=== PATIENT | female | born 1955 | race Caucasian/White ===

== ENCOUNTER 2018-02-03 15:03 | Emergency (ER) | payer MEDICAID ==
[~2018-02-03] VITALS: Ht 175.3 cm; Wt 54.5 kg
[2018-02-03 15:15] VITALS: Ht 175.3 cm; Wt 54.5 kg
[2018-02-03 16:04] LABS: APPEARANCE CLEAR (CLEAR); BILIRUBIN NEGATIVE (NEGATIVE); COLOR YELLOW (YELLOW); GLUCOSE NEGATIVE (NEGATIVE); KETONE SMALL mg/dL (NEGATIVE); NITRITE NEGATIVE (NEGATIVE); PROTEIN TRACE mg/dL (NEGATIVE); UROBILINOGEN NORMAL (NORMAL)
[2018-02-03 16:28] LABS: BASOPHILS 0.5 % (0-2); EOSINOPHILS 0.3 % (0-7); HEMATOCRIT 45.3 % (36.0-48.0); HEMOGLOBIN 15.8 g/dL (12-16); IMMATURE GRANULOCYTES 0.3 % (0-5); LYMPHOCYTES 8.3 % (15-50); MCH 30.7 pg (26.0-34.0); MCHC 34.9 g/dL (31.0-37.0); MCV 88.1 fL (80.0-100.0); MEAN PLATELET VOLUME 10.4 fL (7.4-10.4); MONOCYTES 5.6 % (2-11); RBC 5.14 10x6/uL (4.00-5.40); RDW 12.4 % (11.5-14.5); WBC 11.5 10x3/uL (4.8-10.8)
[2018-02-03 16:30] LABS: PLATELET COUNT 150 10x3/uL (130-400)
[2018-02-03 16:55] LABS: ALKALINE PHOSPHATASE 71 U/L (46-116); ALT (SGPT) 20 U/L (10-68); AMYLASE - SERUM 43 U/L (25-115); CALC OSMOLALITY 270 mosm/kg (275-300); CALCIUM 9.1 mg/dL (8.5-10.1); CARBON DIOXIDE 27.6 mmol/L (21.0-32.0); CHLORIDE - SERUM 99 mmol/L (98-107); CREATININE - SERUM 0.8 mg/dL (0.6-1.3); GLUCOSE 114 mg/dL (74-106); LIPASE 76 U/L (73-393); POTASSIUM - SERUM 4.7 mmol/L (3.5-5.1); PROTEIN - SERUM 6.8 g/dL (6.4-8.2); SODIUM 135 mmol/L (136-145); UREA NITROGEN 13 mg/dL (7-18); eGFR NON AFRICAN AMERICAN 77 mL/min (90-120)
[2018-02-03] MEDS ORDERED: ZOFRAN ODT4 MG/UDTAB PO (21:06)
[2018-02-03] MEDS ORDERED: BENTYL 20 MG TA20 MG PO (21:06)
[2018-02-03 21:53] VITALS: BP 155/78
== END 2018-02-03 21:47 | disposition home or self-care (01) ==
LOC: D.ER 15:03
PROVIDERS: Family Medicine
DX: T50.905A Adverse effect of unspecified drugs, medicaments and biological substances, initial encounter (principal); Y92.019 Unspecified place in single-family (private) house as the place of occurrence of the external cause; R11.0 Nausea; J44.9 Chronic obstructive pulmonary disease, unspecified; F17.200 Nicotine dependence, unspecified, uncomplicated

== ENCOUNTER 2018-08-20 11:33 | Inpatient (IN) | payer MEDICAID ==
[~2018-08-20] VITALS: Ht 175.3 cm; Wt 59.1 kg
[~2018-08-20 11:33] MED LIST: BENTYL 20 MG TA20 MG PO; ZOFRAN ODT4 MG/UDTAB PO
[2018-08-20 13:05] VITALS: BP 150/83
[2018-08-20 13:10] LABS: BASOPHILS 0.3 % (0-2); EOSINOPHILS 0.1 % (0-7); HEMATOCRIT 41.2 % (36.0-48.0); HEMOGLOBIN 14.3 g/dL (12-16); IMMATURE GRANULOCYTES 0.7 % (0-5); MCH 30.6 pg (26.0-34.0); MCHC 34.7 g/dL (31.0-37.0); MCV 88.2 fL (80.0-100.0); MEAN PLATELET VOLUME 10.1 fL (7.4-10.4); MONOCYTES 15.9 % (2-11); RBC 4.67 10x6/uL (4.00-5.40); RDW 12.7 % (11.5-14.5); WBC 16.2 10x3/uL (4.8-10.8)
[2018-08-20 13:12] LABS: PLATELET COUNT 274 10x3/uL (130-400)
[2018-08-20 13:51] LABS: ALBUMIN 3.4 g/dL (3.4-5.0); ALKALINE PHOSPHATASE 163 U/L (46-116); ALT (SGPT) 31 U/L (10-68); BILIRUBIN - TOTAL 0.36 mg/dL (0.2-1.3); CALC OSMOLALITY 266 mosm/kg (275-300); CALCIUM 9.6 mg/dL (8.5-10.1); CARBON DIOXIDE 27.5 mmol/L (21.0-32.0); CHLORIDE - SERUM 95 mmol/L (98-107); CREATININE - SERUM 0.7 mg/dL (0.6-1.3); GLUCOSE 131 mg/dL (74-106); PROTEIN - SERUM 8.1 g/dL (6.4-8.2); SODIUM 133 mmol/L (136-145); UREA NITROGEN 9 mg/dL (7-18); eGFR NON AFRICAN AMERICAN 89 mL/min (90-120)
[2018-08-20 13:52] LABS: TROPONIN-I < 0.017 ng/mL (0.000-0.060)
[2018-08-20 14:19] LABS: PRO BNP 589 pg/mL (0-125)
[2018-08-20 16:41] VITALS: BP 120/69; BMI 18.2
[2018-08-20 19:00] VITALS: BP 118/69
[2018-08-21] VITALS (7 sets, daily range): BP systolic 117–131; BP diastolic 58–86; Ht 175.3 cm; Wt 59.1 kg
[2018-08-21 10:55] LABS: BASOPHILS 0.2 % (0-2); EOSINOPHILS 0 % (0-7); HEMATOCRIT 38.2 % (36.0-48.0); HEMOGLOBIN 13.1 g/dL (12-16); IMMATURE GRANULOCYTES 1.1 % (0-5); LYMPHOCYTES 8.2 % (15-50); MCH 30.3 pg (26.0-34.0); MCHC 34.3 g/dL (31.0-37.0); MCV 88.4 fL (80.0-100.0); MEAN PLATELET VOLUME 10.1 fL (7.4-10.4); MONOCYTES 6.7 % (2-11); NEUTROPHILS 83.8 % (40-80); PLATELET COUNT 300 10x3/uL (130-400); RBC 4.32 10x6/uL (4.00-5.40); RDW 12.8 % (11.5-14.5); WBC 12.2 10x3/uL (4.8-10.8)
[2018-08-21 11:04] LABS: CALCIUM 9.1 mg/dL (8.5-10.1); CHLORIDE - SERUM 96 mmol/L (98-107); CREATININE - SERUM 0.7 mg/dL (0.6-1.3); POTASSIUM - SERUM 3.9 mmol/L (3.5-5.1); SODIUM 133 mmol/L (136-145); eGFR NON AFRICAN AMERICAN 89 mL/min (90-120)
[2018-08-21 11:08] LABS: CALC OSMOLALITY 277 mosm/kg (275-300); GLUCOSE 252 mg/dL (74-106); UREA NITROGEN 21 mg/dL (7-18)
[2018-08-21 11:20] LABS: ALKALINE PHOSPHATASE 152 U/L (46-116); ALT (SGPT) 36 U/L (10-68); BILIRUBIN - TOTAL 0.22 mg/dL (0.2-1.3); CARBON DIOXIDE 27.4 mmol/L (21.0-32.0); PROTEIN - SERUM 7.2 g/dL (6.4-8.2)
[2018-08-22] VITALS: BP 130/68
[2018-08-22 04:00] VITALS: BP 134/71
[2018-08-22 04:23] LABS: BASOPHILS 0.3 % (0-2); EOSINOPHILS 0 % (0-7); HEMATOCRIT 36.7 % (36.0-48.0); HEMOGLOBIN 12.2 g/dL (12-16); IMMATURE GRANULOCYTES 2.6 % (0-5); LYMPHOCYTES 7.7 % (15-50); MCH 29.9 pg (26.0-34.0); MCHC 33.2 g/dL (31.0-37.0); MEAN PLATELET VOLUME 10.7 fL (7.4-10.4); MONOCYTES 7.9 % (2-11); NEUTROPHILS 81.5 % (40-80); PLATELET COUNT 282 10x3/uL (130-400); RBC 4.08 10x6/uL (4.00-5.40); RDW 13.2 % (11.5-14.5)
[2018-08-22 04:29] LABS: WBC 16.4 10x3/uL (4.8-10.8)
[2018-08-22 04:39] LABS: ALBUMIN 2.8 g/dL (3.4-5.0); ALKALINE PHOSPHATASE 133 U/L (46-116); ALT (SGPT) 40 U/L (10-68); BILIRUBIN - TOTAL 0.19 mg/dL (0.2-1.3); CALC OSMOLALITY 269 mosm/kg (275-300); CALCIUM 8.7 mg/dL (8.5-10.1); CARBON DIOXIDE 27.8 mmol/L (21.0-32.0); CHLORIDE - SERUM 98 mmol/L (98-107); CREATININE - SERUM 0.7 mg/dL (0.6-1.3); GLUCOSE 152 mg/dL (74-106); POTASSIUM - SERUM 4.7 mmol/L (3.5-5.1); PROTEIN - SERUM 6.5 g/dL (6.4-8.2); SODIUM 132 mmol/L (136-145); UREA NITROGEN 18 mg/dL (7-18); eGFR NON AFRICAN AMERICAN 89 mL/min (90-120)
[2018-08-22 07:00] VITALS: BP 136/68
[2018-08-22 08:28] LABS: MAGNESIUM - SERUM 2.3 mg/dL (1.8-2.4); PHOSPHOROUS 3.6 mg/dL (2.5-4.9)
[2018-08-22] MEDS ORDERED: ALBUTEROL SULF8.5 GM INH (13:52)
[2018-08-22 13:57] VITALS: BP 130/70
[2018-08-22 14:39] LABS: APPEARANCE CLEAR (CLEAR); BILIRUBIN NEGATIVE (NEGATIVE); COLOR YELLOW (YELLOW); GLUCOSE NEGATIVE (NEGATIVE); KETONE NEGATIVE (NEGATIVE); NITRITE NEGATIVE (NEGATIVE); PROTEIN TRACE mg/dL (NEGATIVE); SPECIFIC GRAVITY 1.015 (1.005-1.020); UROBILINOGEN NORMAL (NORMAL)
[2018-08-22 14:40] LABS: AMORPHOUS SEDIMENT <1+ /lpf (NONE SEEN); BACTERIA MODERATE /hpf (NONE SEEN); EPITHELIAL CELLS 0-5 /hpf (0-5); MUCUS <1+ /lpf (NONE SEEN); RED CELLS - URINE OCC /hpf (0-5); WHITE CELLS - URINE OCC /hpf (0-5)
[2018-08-22 16:11] VITALS: BP 155/76
[2018-08-22 20:00] VITALS: BP 140/60
[2018-08-23 04:00] VITALS: BP 142/66
[2018-08-23 05:39] LABS: BASOPHILS 0.5 % (0-2); EOSINOPHILS 0 % (0-7); HEMATOCRIT 35.8 % (36.0-48.0); HEMOGLOBIN 11.6 g/dL (12-16); LYMPHOCYTES 8.7 % (15-50); MCH 29.7 pg (26.0-34.0); MCHC 32.4 g/dL (31.0-37.0); MCV 91.6 fL (80.0-100.0); MEAN PLATELET VOLUME 10.2 fL (7.4-10.4); MONOCYTES 8.4 % (2-11); NEUTROPHILS 74.4 % (40-80); PLATELET COUNT 309 10x3/uL (130-400); RBC 3.91 10x6/uL (4.00-5.40); RDW 13.2 % (11.5-14.5); WBC 16.4 10x3/uL (4.8-10.8)
[2018-08-23 05:50] LABS: ALBUMIN 2.7 g/dL (3.4-5.0); ALKALINE PHOSPHATASE 120 U/L (46-116); ALT (SGPT) 49 U/L (10-68); BILIRUBIN - TOTAL 0.25 mg/dL (0.2-1.3); CALC OSMOLALITY 271 mosm/kg (275-300); CALCIUM 8.6 mg/dL (8.5-10.1); CARBON DIOXIDE 29.6 mmol/L (21.0-32.0); CHLORIDE - SERUM 100 mmol/L (98-107); CREATININE - SERUM 0.7 mg/dL (0.6-1.3); GLUCOSE 127 mg/dL (74-106); MAGNESIUM - SERUM 2.4 mg/dL (1.8-2.4); PHOSPHOROUS 3.4 mg/dL (2.5-4.9); POTASSIUM - SERUM 4.8 mmol/L (3.5-5.1); SODIUM 134 mmol/L (136-145); UREA NITROGEN 17 mg/dL (7-18); eGFR NON AFRICAN AMERICAN 89 mL/min (90-120)
[2018-08-23 10:19] VITALS: BP 160/73
[2018-08-23 17:31] VITALS: BP 150/68
[2018-08-23 21:10] VITALS: BP 141/74
[2018-08-24] VITALS (7 sets, daily range): BP systolic 125–164; BP diastolic 71–85
[2018-08-24 05:24] LABS: BASOPHILS 0.7 % (0-2); EOSINOPHILS 0 % (0-7); HEMATOCRIT 39.6 % (36.0-48.0); HEMOGLOBIN 13.2 g/dL (12-16); IMMATURE GRANULOCYTES 10.4 % (0-5); MCH 30.6 pg (26.0-34.0); MCHC 33.3 g/dL (31.0-37.0); MCV 91.7 fL (80.0-100.0); NEUTROPHILS 71.9 % (40-80); PLATELET COUNT 322 10x3/uL (130-400); RBC 4.32 10x6/uL (4.00-5.40); RDW 13.2 % (11.5-14.5); WBC 17.2 10x3/uL (4.8-10.8)
[2018-08-24 05:48] LABS: ALBUMIN 2.9 g/dL (3.4-5.0); ALKALINE PHOSPHATASE 115 U/L (46-116); ALT (SGPT) 55 U/L (10-68); BILIRUBIN - TOTAL 0.27 mg/dL (0.2-1.3); CALC OSMOLALITY 275 mosm/kg (275-300); CALCIUM 8.7 mg/dL (8.5-10.1); CHLORIDE - SERUM 100 mmol/L (98-107); CREATININE - SERUM 0.7 mg/dL (0.6-1.3); GLUCOSE 123 mg/dL (74-106); MAGNESIUM - SERUM 2.4 mg/dL (1.8-2.4); PHOSPHOROUS 3.6 mg/dL (2.5-4.9); POTASSIUM - SERUM 5.4 mmol/L (3.5-5.1); PROTEIN - SERUM 6.3 g/dL (6.4-8.2); SODIUM 137 mmol/L (136-145); UREA NITROGEN 14 mg/dL (7-18); eGFR NON AFRICAN AMERICAN 89 mL/min (90-120)
--- NOTE | 2018-08-24 10:51 | MORECARE ---
CASE MANAGEMENT DISCHARGE SUMMARY PATIENT: ANCA NEWBERRY UNIT: [id number] ADM DATE: 08/20/18 AGE: 63 : 53 SEX: F ROOM/BED: D.9207 AUTHOR: ISIDRO SUAZO PHYSICIAN: REFERRING PHYSICIAN: ROLO MARTINEZ MD DATE OF SERVICE: 08/24/18 Discharge Plan Patient Name: ANCA NEWBERRY Facility: [facility]:[place] : 1955 Planned Disposition: Home Anticipated Discharge Date: 08/26/18 Discharge Date: Expected LOS: 6 Initial Reviewer: [email or web address] Initial Review Date: 08/24/2018 Generated: 08/24/18 11:51 am Comments DCP- Discharge Planning Updated by [email or web address]: Alexandrea Bauer on 08/24/18 9:[address] Patient Name: ANCA NEWBERRY Admission Status: ER Accout number: [id number] Admission Date: 08-20-2018 : 1955 Admission Diagnosis:SHORTNESS OF BREATH Attending: ROLO MARTINEZ Current LOS: 4 Anticipated DC Date: 08-26-2018 Planned Disposition: Home Primary Insurance: [facility] PRIVATE OPTIONS [facility] Discharge Planning Comments: CM MET WITH PATIENT REGARDING D/C NEEDS AND PLANS. PATIENT STATED HER DAUGHTER AND GRANDDAUGHTER LIVES WITH HER. PATIENT STATED HER DAUGHTER WILL DRIVE HER HOME AT DISCHARGE. PATIENT STATED THERE ARE NO STEPS OR STAIRS AT HER HOME. PATIENTS PCP IS DR. OCONNOR AND USES [facility] [address] [facility]. PATIENT IS INDEPENDENT WITH HER CARE AND HAS A WALKER, AND CANE AT HOME. PATIENT REFUSED HOME HEALTH. CM WILL CONTINUE TO FOLLOW PATIENT WITH D/C NEEDS AND PLANS. PCP DR[facility] ON [address] (DAUGHTER) [phone] Artificial Plastic Eye Maker: Alexandrea Bauer DCPIA - Discharge Planning Initial Assessment Updated by [email or web address]: Alexandrea Bauer on 08/24/18 10:47 am * Is the patient Alert and Oriented? Yes * How many steps to enter\exit or inside your home? * PCP DR. OCONNOR * [facility] AND [facility] * Preadmission Environment Home with Family * ADLs Independent * Equipment Cane Walker * List name and contact numbers for known caregivers / representatives who currently or will assist patient after discharge: PAIGE HAM (DAUGHTER) [phone] * Verbal permission to speak to the caregivers and representatives has been obtained from the patient. Yes * Community resources currently utilized None * Additional services required to return to the preadmission environment? Yes * Can the patient safely return to the preadmission environment? Yes * Has this patient been hospitalized within the prior 30 days at any hospital? No Patient Name: ANCA NEWBERRY Page [id number] at 1051 All edits/amendments must be made on the electronic document DICTATION DATE: 08/24/18 105 DIRECTOR EHS: LISA 08/24/18 1051 RPT#: [id number] DC DATE: STATUS: ADM IN [facility] [address] [place] [address] END OF REPORT
[2018-08-25 03:45] VITALS: BP 172/67
[2018-08-25 05:58] LABS: HEMATOCRIT 38.2 % (36.0-48.0); HEMOGLOBIN 12.7 g/dL (12-16); MCH 30.2 pg (26.0-34.0); MCHC 33.2 g/dL (31.0-37.0); MEAN PLATELET VOLUME 10.1 fL (7.4-10.4); PLATELET COUNT 362 10x3/uL (130-400); WBC 20.7 10x3/uL (4.8-10.8)
[2018-08-25 05:59] LABS: ALBUMIN 2.6 g/dL (3.4-5.0); ALKALINE PHOSPHATASE 101 U/L (46-116); ALT (SGPT) 50 U/L (10-68); BILIRUBIN - TOTAL 0.28 mg/dL (0.2-1.3); CALC OSMOLALITY 273 mosm/kg (275-300); CALCIUM 8.1 mg/dL (8.5-10.1); CARBON DIOXIDE 33.4 mmol/L (21.0-32.0); CHLORIDE - SERUM 100 mmol/L (98-107); CREATININE - SERUM 0.7 mg/dL (0.6-1.3); GLUCOSE 76 mg/dL (74-106); MAGNESIUM - SERUM 1.9 mg/dL (1.8-2.4); PROTEIN - SERUM 5.8 g/dL (6.4-8.2); SODIUM 137 mmol/L (136-145); UREA NITROGEN 14 mg/dL (7-18); eGFR NON AFRICAN AMERICAN 89 mL/min (90-120)
[2018-08-25 06:01] LABS: POTASSIUM - SERUM 4.2 mmol/L (3.5-5.1)
[2018-08-25 07:20] LABS: EOSINOPHILS 1 % (0-7); LYMPHOCYTES 15 % (15-50); MONOCYTES 2 % (2-11); NEUTROPHILS 75 % (40-80); PLATELET ESTIMATE NORMAL; PLATELET MORPHOLOGY PLT CLUMPS PRESENT
[2018-08-25 08:13] VITALS: BP 183/83
[2018-08-25] MEDS ORDERED: LEVAQUIN750 MG PO (10:57)
[2018-08-25] MEDS ORDERED: PULMICORT0.5 MG/21 UPD (10:57)
[2018-08-25] MEDS ORDERED: STERAPRED DS 1010 MG PO (10:58)
[2018-08-25 11:23] VITALS: BP 152/82
--- NOTE | 2018-08-25 11:50 | MORECARE ---
CASE MANAGEMENT DISCHARGE SUMMARY PATIENT: ANCA NEWBERRY UNIT: [id number] ADM DATE: 08/20/18 AGE: 63 : 53 SEX: F ROOM/BED: D.9014 AUTHOR: ISIDRO SUAZO PHYSICIAN: REFERRING PHYSICIAN: ROLO MARTINEZ MD DATE OF SERVICE: 08/25/18 Discharge Plan Patient Name: ANCA NEWBERRY Facility: [facility]:[place] : 1955 Planned Disposition: Home Anticipated Discharge Date: 08/25/18 Discharge Date: Expected LOS: 5 Initial Reviewer: [email or web address] Initial Review Date: 08/24/2018 Generated: 08/25/18 12:50 pm Comments DCP- Discharge Planning Updated by [email or web address]: Alexandrea Bauer on 08/24/18 9:[address] Patient Name: ANCA NEWBERRY Admission Status: ER Accout number: [id number] Admission Date: 08-20-2018 : 1955 Admission Diagnosis:SHORTNESS OF BREATH Attending: ROLO MARTINEZ Current LOS: 4 Anticipated DC Date: 08-26-2018 Planned Disposition: Home Primary Insurance: [facility] PRIVATE OPTIONS [facility] Discharge Planning Comments: CM MET WITH PATIENT REGARDING D/C NEEDS AND PLANS. PATIENT STATED HER DAUGHTER AND GRANDDAUGHTER LIVES WITH HER. PATIENT STATED HER DAUGHTER WILL DRIVE HER HOME AT DISCHARGE. PATIENT STATED THERE ARE NO STEPS OR STAIRS AT HER HOME. PATIENTS PCP IS DR. OCONNOR AND USES [facility] [address] [facility]. PATIENT IS INDEPENDENT WITH HER CARE AND HAS A WALKER, AND CANE AT HOME. PATIENT REFUSED HOME HEALTH. CM WILL CONTINUE TO FOLLOW PATIENT WITH D/C NEEDS AND PLANS. PCP [facility] ON [address] (DAUGHTER) [phone] Diesel Pile Driver Operator: Alexandrea Bauer DCPIA - Discharge Planning Initial Assessment Updated by [email or web address]: Alexandrea Bauer on 08/24/18 10:47 am * Is the patient Alert and Oriented? Yes * How many steps to enter\exit or inside your home? * PCP DR. OCONNOR * [facility]acy [facility] AND [facility] * Preadmission Environment Home with Family * ADLs Independent * Equipment Cane Walker * List name and contact numbers for known caregivers / representatives who currently or will assist patient after discharge: PAIGE HAM (DAUGHTER) [phone] * Verbal permission to speak to the caregivers and representatives has been obtained from the patient. Yes * Community resources currently utilized None * Additional services required to return to the preadmission environment? Yes * Can the patient safely return to the preadmission environment? Yes * Has this patient been hospitalized within the prior 30 days at any hospital? No Last DP export: 08/24/18 9:51 Patient Name: ANCA NEWBERRY Page [id number] at 1150 All edits/amendments must be made on the electronic document DICTATION DATE: 08/25/181148 CARDIOVASCULAR TECHNOLOGIST: LISA 08/25/181148 RPT#: [id number] DC DATE: STATUS: ADM IN [facility] [address] [place] [address] END OF REPORT
== END 2018-08-25 13:38 | disposition home or self-care (01) | DRG 191 ==
LOC: D.ER 11:33 → D.M2 15:50 → OBSVTIME 15:50 → D.M2 15:50
PROVIDERS: Family Medicine; ADMIT Emergency Medicine
DX: J44.1 Chronic obstructive pulmonary disease with (acute) exacerbation (principal); E87.1 Hypo-osmolality and hyponatremia; N39.0 Urinary tract infection, site not specified; F17.213 Nicotine dependence, cigarettes, with withdrawal; E87.5 Hyperkalemia